=== PATIENT | male | born 1990 | race Native Hawaiian/Other Pacific Islander ===

== ENCOUNTER 2017-02-17 13:19 | Emergency (ER) | payer SELFPAY ==
[2017-02-17 13:29] VITALS: BP 130/79; PULSE 67; RESP 16; TEMP 98.2; O2SAT 98
--- NOTE | 2017-02-17 14:52 | ED PDOC ---
Upper Extremity Pain/Injury Time Seen by Provider: 02/17/17 13:33 Chief Complaint (Nursing): Abnormal Skin Integrity Chief Complaint (Provider): Abrasion on Right shoulder History Per: Patient History/Exam Limitations: no limitations Current Symptoms Are (Timing): Still Present Additional Complaint(s): Marge Pollard, a 26 year old male, presents to the ED with a left shoulder injury. The patient states that he hit his shoulder on the hard part of a fire extinguisher. The patient reports that this morning he noticed some mild bleeding from the wounded area and decided to come into the ED to be evaluated. Patient is unsure of whether or not his tetanus shot is up to date. Past Medical History Reviewed: Historical Data, Nursing Documentation, Vital Signs Vital Signs: Last Vital Signs Temp 98.2 F 02/17/17 13:26 Pulse 67 02/17/17 13:26 Resp 16 02/17/17 13:26 BP 130/79 02/17/17 13:26 Pulse Ox 98 02/17/17 13:26 - Medical History PMH: No Chronic Diseases - Surgical History Surgical History: No Surg Hx - Family History Family History: States: Unknown Family Hx - Immunization History Hx Tetanus Toxoid Vaccination: No - Allergies Allergies/Adverse Reactions: Allergies Allergy/AdvReac Type Severity Reaction Status Date / Time No Known Allergies Allergy Verified 02/17/17 13:29 Review of Systems Musculoskeletal: Positive for: Other (Abrasion to righ that shoulder.) Physical Exam - Reviewed Nursing Documentation Reviewed: Yes Vital Signs Reviewed: Yes - Physical Exam Appears: Positive for: Non-toxic, No Acute Distress Head Exam: Positive for: ATRAUMATIC, NORMAL INSPECTION, NORMOCEPHALIC Skin: Positive for: Normal Color, Warm, Dry. Negative for: Rash Eye Exam: Positive for: Normal appearance ENT: Positive for: Normal ENT Inspection Neck: Positive for: Normal Extremity: Positive for: Normal ROM, Swelling (5cm Linear abrasion on right shoulder.). Negative for: Tenderness, Deformity - ECG O2 Sat by Pulse Oximetry: 98 (RA) Pulse Ox Interpretation: Normal Medical Decision Making Medical Decision Makin Initial Impression: 26 year old male presenting with abrasion to right shoulder Initial Plan: * Adacel 0.5ml IM * Reevaluation Scribe Attestation Documented by Rhonda Malik acting as a scribe for Mojgan Lin PA-C. Scribe Attestation All medical record entries made by the Scribe were at my direction and personally dictated by me. I have reviewed the chart and agree that the record accurately reflects my personal performance of the history, physical exam, medical decision making, and the department course for this patient. I have also personally directed, reviewed, and agree with the discharge instructions and disposition. Disposition - Clinical Impression Clinical Impression: Abrasion, Tetanus toxoid vaccination administered at current visit - Disposition Disposition Time: 15:08 Condition: GOOD Instructions: Abrasion (ED) Forms: [facility] ([place])
== END 2017-02-17 15:10 | disposition home or self-care (01) ==
LOC: H.ER 13:19
DX: S40.211A Abrasion of right shoulder, initial encounter (principal); W22.8XXA Striking against or struck by other objects, initial encounter; Y92.89 Other specified places as the place of occurrence of the external cause